=== PATIENT | male | born 1970 | race Two or more races ===

== ENCOUNTER 2023-01-18 22:17 | Emergency (ER) | payer BC ==
[~2023-01-18] VITALS: Ht 180.3 cm; Wt 83.9 kg
[2023-01-18] MEDS ORDERED: HYDR453.3 TP (23:09)
[2023-01-18] MEDS ORDERED: FAMO20TA8 PO (23:09)
[2023-01-18] MEDS ORDERED: DIPH25CA83 PO (23:09)
[2023-01-18 23:51] VITALS: BP 124/61; TEMP 98.4; O2SAT 98
== END 2023-01-18 23:52 | disposition home or self-care (01) ==
LOC: ER 22:21
DX: B01.9 Varicella without complication (principal); Z79.899 Other long term (current) drug therapy